=== PATIENT | female | born 1950 | race Caucasian/White ===

== ENCOUNTER 2017-02-06 14:34 | Outpatient (CLI) | payer MEDICARE ==
[2017-02-06] VITALS (9 sets, daily range): BP systolic 101–141; BP diastolic 44–75; BMI 39.4
[~2017-02-06] VITALS: Ht 162.6 cm; Wt 104.0 kg
--- NOTE | ~2017-02-06 | HEMODYNAMI ---
PATIENT:DANIA QUINTANILLA MEDICAL RECORD: [id number] : 46 LOCATION:[place] [address] ADMISSION DATE: 02/06/17 Generatedon:02/06/201715:35 Patient name: DANIA QUINTANILLA Patient #: [id number] SSN: : 1950 Date of study: 02/06/2017 Page: Of Hemodynamic Procedure Report Patient Data Patient Demographics Procedure consent was obtained First Name: DANIA Gender: Female Last Name: SOCORRO : 1950 Middle Initial: Horace Age: 66 year(s) Patient #: [id number] Race: Unknown Additional ID: [id number] Contact details [address]: [address] [place] [address] State: [place] City: [place] Zip code: [address] Admission Admission Data Admission Date: 02/06/2017 Admission Time: 14:34 Room #: [facility] Procedure Procedure Types Cath Procedure Diagnostic Procedure LHC LHC w/Coronaries PCI Procedure AMI-BMS/GEOVANNY Initial Miscellaneous Procedures Moderate Sedation up to 30 minutes Procedure Description Procedure Date Procedure Date: 02/06/2017 Procedure Start Time: 14:52 Procedure End Time: 15:35 Procedure Staff Name Function Antony Breaux MD Performing Physician Debo Mckinnon RN Nurse Artur Temple RT Monitor Eyal Jerome RT Scrub Procedure Data Cath Procedure Fluoroscopy Diagnostic fluoroscopy Total fluoroscopy Time: 9.5 time: 9.5 min min Diagnostic fluoroscopy Total fluoroscopy dose: dose: 1542 mGy 1542 mGy Contrast Material Contrast Material Type Amount (ml) Isovue 300 163 Entry Location Entry Primary Successful Side Size Upsize Upsize Entry Closure Succes sful Closure Location (Fr) 1 (Fr) 2 (Fr) Remarks Device Remarks Femoral Right 6 Fr 6 Fr 6 Fr Exoseal artery Short Long Short Estimated blood loss: 10 ml Diagnostic catheters Device Type Used For End Catheter Placement Cordis 5Fr JL 4.0 Procedure Catheter (MP) Cordis 5Fr 3DRC Catheter Procedure (MP) Cordis 5Fr Pigtail Procedure Catheter (MP) Diagnostic Infinity 5Fr Coronary JR 4 catheter Angiography Procedure Complications No complications Procedure Medications Medication Administration Route Dosage Oxygen NC 2 l/min Heparin Flush Bag added to field 2 bags (1000units/500ml NS) Lidocaine 2% added to field 20 Versed I.V. 1 mg Fentanyl I.V. 50 mcg 0.9% NaCl I.V. 100 ml/hr Fentanyl I.V. 50 mcg Versed I.V. 1 mg Fentanyl I.V. 50 mcg Benadryl I.V. 50 mg Fentanyl I.V. 50 mcg Integrilin (Bolus I.V. 9 ml 2mg/ml) Hemodynamics Rest Heart Rate: 70 (bpm) Pressure Samples Time Site Value (mmHg) Purpose Heart Use Rate(bpm) 15:03 LV 192/27,32 Snapshot 87 15:14 AO 182/105(137) Snapshot 79 Gradients Valve Time Site Site Mean SEP/DFP Peak To Heart Use 1 2 (mmHg) (sec/min) Peak Rate (mmHg) (bpm) Aortic 15:04 LV AO 79 Snapshots Pre Cath Intra NCS Post Cath Vital Signs Time Heart Resp SPO2 etCO2 WR1rotx NIBP (mmHg) Rhythm Pain Sedatio n Rate (ipm) (%) (mmHg) (mmHg) Status Level (bpm) 14:38:04 67 16 98 0 0 177/83(139) NSR 0 (11) 10(A) , No pain 14:43:03 73 16 98 0 0 Measuring NSR 0 (11) 10(A) , No pain 14:43:09 75 16 98 0 0 188/67(162) NSR 0 (11) 10(A) , No pain 14:48:08 78 20 98 0 0 190/102(142) NSR 0 (11) 10(A) , No pain 14:52:59 79 16 98 0 0 180/100(132) NSR 0 (11) 10(A) , No pain 14:57:48 67 19 95 0 0 163/94(145) NSR 0 (11) 10(A) , No pain 15:02:33 80 20 95 0 0 173/100(115) NSR 0 (11) 9(A) , No pain 15:07:23 77 17 96 0 0 178/98(163) NSR 0 (11) 9(A) , No pain 15:12:16 78 19 97 0 0 183/102(152) NSR 0 (11) 9(A) , No pain 15:17:13 80 14 97 0 0 191/92(138) NSR 0 (11) 9(A) , No pain 15:22:02 83 14 97 0 0 184/95(141) NSR 0 (11) 9(A) , No pain 15:26:57 83 15 97 0 0 187/100(149) NSR 0 (11) 9(A) , No pain 15:31:15 83 17 96 0 0 183/108(137) NSR 0 (11) 9(A) , No pain Medications Time Medication Route Dose Verified Delivered Reason Notes Ef fectiveness by by 14:45:40 Oxygen NC 2 Antony Debo Per l/min [facility] Fernie weir MD 14:45:47 Heparin Flush added 2 Antony Antony for Bag to bags [facility] antiplatelet (1000units/500ml field MD MILLER therapy NS) 14:45:53 Lidocaine 2% added 20ml Antony Antony used for to vial [facility] procedure field MD MILLER 14:45:55 Benadryl I.V. 50 mg Antony Debo Per [facility] Fernie weir MD 14:48:32 0.9% NaCl I.V. 100 Antony Debo Per ml/hr [facility] Fern[facility] weir MD 14:48:56 Versed I.V. 1 mg Antony Debo for sedation [facility] Fernie Mckinnon RN, MD 14:48:56 Fentanyl I.V. 50 Antony Debo for sedation mcg [facility] Fernie Mckinnon RN, MD 14:51:35 Fentanyl I.V. 50 Antony Debo for sedation mcg [facility] Fernie Mckinnon RN, MD 14:51:45 Versed I.V. 1 mg Antony Debo for sedation [facility] Fernie Mckinnon RN, MD 14:54:51 Fentanyl I.V. 50 Antony Debo for sedation mcg [facility] Fernie Mckinnon RN, MD 14:58:47 Fentanyl I.V. 50 Antony Debo for sedation mcg [facility] Fernie Mckinnon RN, MD 15:10:36 Integrilin I.V. 9 ml Antony Debo for wasted (Bolus 2mg/ml) [facility] Fernie Mckinnon RN antiplatelet 1 ml MD therapy Procedure Log Time Note 14:30:42 Artur Temple RT(R) sent for patient. Start room use. 14:35:49 Time tracking: Regular hours 14:35:54 Plan of Care:Hemodynamics will remain stable., Cardiac rhythm will remain stable., Comfort level will be maintained., Respiratory function will remain adequate., Patient/ family verbilizes understanding of procedure., Procedure tolerated without complication., Recovers from procedure without complications.. 14:36:09 Patient received from CVICU to CCL 1 Alert and oriented. Tansferred to table in Supine position. 14:36:10 Warm blankets applied, and adilson hugger turned on for patient comfort. 14:36:11 Correct patient and procedure confirmed by team. 14:36:16 Signed procedure consent form obtained from patient. 14:36:17 ECG and BP/O2 sat monitors applied to patient. 14:36:18 Vital chart was started 14:44:10 Baseline sample Acquired. 14:44:16 Rhythm: sinus rhythm 14:44:17 Full Disclosure recording started 14:44:20 H&P Date Dictated: 02/06/2017 Emergent; H&P N/A. 14:44:21 Pre-procedure instructions explained to patient. 14:44:21 Pre-op teaching completed and patient verbalized understanding. 14:44:25 Family unavailable. 14:44:27 Patient NPO since Midnight. 14:44:29 Is the patient allergic to Iodine/contrast media? No. 14:44:32 Is patient on blood thinner?Yes 14:44:35 ACC The patient was administered the following blood thiners within the last 24 hours: ACCPlavix 14:44:38 Patient diabetic? No. 14:44:42 Patient not . Patient is over age 55. 14:44:43 Previous problem with sedation/anesthesia? No ? 14:44:44 Snore? Yes 14:44:45 Sleep apnea? No 14:44:47 Deviated septum? No 14:44:55 Opens mouth fully? Yes 14:44:56 Sticks out tongue? Yes 14:44:59 Airway obstruction? No ? 14:45:02 Dentures? No ? 14:45:08 Pre procedure: right dorsailis pedis pulse 1+ Palpable, but thready & weak; easily obliterated 14:45:11 Patient pain scale 0/10 ?. 14:45:18 IV patent on arrival in left forearm with 0.9% NaCl at O. 14:45:20 Lab results completed and on chart. 14:45:23 Right groin area was prepped with chlora-prep and draped in sterile fashion 14:45:24 Alarms reviewed by R. N. 14:45: Sharps counted by scrub and verified by R.N. 14:45: --------ALL STOP TIME OUT------ 14:45: Final Timeout: patient, procedure, and site verified with staff and physician. All members of the team are in agreement. 14:45:28 Right groin site verified by team. 14:45:32 Physical assessment completed. ASA score P 2 - A patient with mild systemic disease as per Antony Breaux MD. 14:45:40 Oxygen 2 l/min NC was administered by Debo Mckinnon RN; Per physician; 14:45:47 Heparin Flush Bag (1000units/500ml NS) 2 bags added to field was administered by Antony Breaux MD; for antiplatelet therapy; 14:45:52 Sedation plan: IV Moderate Sedation Versed, Fentanyl 14:45:53 Lidocaine 2% 20ml vial added to field was administered by Antony Breaux MD; used for procedure; 14:45:55 Benadryl 50 mg I.V. was administered by Debo Mckinnon RN; Per physician; 14:48:32 0.9% NaCl 100 ml/hr I.V. was administered by Debo Mckinnon RN; Per physician; 14:48:56 Versed 1 mg I.V. was administered by Debo Mckinnon RN; for sedation; 14:48:56 Fentanyl 50 mcg I.V. was administered by Debo Mckinnon RN; for sedation; 14:49:51 Zero performed for pressure channel P1 14:51:35 Fentanyl 50 mcg I.V. was administered by Debo Mckinnon RN; for sedation; 14:51:45 Versed 1 mg I.V. was administered by Debo Mckinnon RN; for sedation; 14:51:57 Use device set Femoral PCI 14:51:59 Tegaderm 4 x 4 opened to sterile field. 14:52:00 Acist Manifold opened to sterile field. 14:52:02 Acist Syringe opened to sterile field. 14:52:03 Acist Hand Control opened to sterile field. 14:52:03 Bag Decanter opened to sterile field. 14:52:04 Medline Cath Pack opened to sterile field. 14:52:04 Terumo 6Fr Franklin Sheath opened to sterile field. 14:52:04 St Ignacio 260cm J .035 wire opened to sterile field. 14:52:05 Merit BasixCompak Inflation Kit opened to sterile field. 14:52:09 Use device set Multipack Set 14:52:11 Diagnostic Infinity 5Fr Multipack catheter opened to sterile field. 14:52:19 Dickson [place] 300cm 0.014 guide wire opened to sterile field. 14:52:26 Procedure started. 14:52:30 Local anesthetic to right femoral artery with Lidocaine 2% by Antony Breaux MD.INITIAL ACCESS ONLY 14:54:51 Fentanyl 50 mcg I.V. was administered by Debo Mckinnon RN; for sedation; 14:56:13 A 6 Fr Short sheath was inserted into the Right Femoral artery 14:57:00 A Cordis 5Fr JL 4.0 Catheter (MP) was advanced over the wire and used for Procedure. 14:57:29 LCA angiography performed. 14:58:47 Fentanyl 50 mcg I.V. was administered by Debo Mckinnon RN; for sedation; 14:59:45 Catheter removed. 15:00:17 A Cordis 5Fr 3DRC Catheter (MP) was advanced over the wire and used for Procedure. 15:01:07 Catheter removed. 15:02:37 Terumo 6Fr Franklin Destination Sheath opened to sterile field. 15:02:49 A Cordis 5Fr Pigtail Catheter (MP) was advanced over the wire and used for Procedure. 15:03:53 LV angiography performed. 15:03:55 LV gram done using SHAFER 15:04:02 EF : 55 % 15:04:07 LV hemodynamics recorded. 15:04:12 Injector settings: Ml/sec: 10, Volume: 20, 15:04:56 Catheter removed. 15:05:26 Sheath upsized to a 6 Fr Long. 15:07:19 A Diagnostic Infinity 5Fr JR 4 catheter was advanced over the wire and used for Coronary Angiography. 15:07:53 RCA angiography performed. 15:07:56 Catheter removed. 15:08:17 Medtronic Launcher 6Fr HS I guide catheter opened to sterile field. 15:08:38 ACC PCI Site: mRCA has 99% stenosis. 15:08:41 ACC Pre-intervention NICHOLE Flow is 3. 15:08:49 6 Fr HS 1 SH guide catheter was inserted over the wire 15:10:36 Integrilin (Bolus 2mg/ml) 9 ml I.V. was administered by Debo Mckinnon RN; for antiplatelet therapy; wasted 1 ml 15:10:57 [place] wire advanced. 15:14:01 Wire removed. damaged. 15:14:08 Dickson Whisper J 300cm 0.014 guide wire opened to sterile field. 15:14:15 Whisper wire advanced. 15:17:00 Wire advanced across lesion. 15:17:23 Inflation number: 1 A Salter Path ThromboGenics [place] 3.0 X 15 balloon was prepped and advanced across the Mid RCA, then inflated to 8 QUENTIN for 0:30 (min:sec). 15:18:01 Balloon removed over the wire. 15:23:11 Inflation Number: 2 A AEOLUS PHARMACEUTICALStronic Integrity 3.5 X 15 stent was prepped and advanced across the Mid RCA. The stent was deployed at 14 QUENTIN for 0:45 (min:sec). 15:23:38 ACC Post-intervention NICHOLE Flow is 3. 15:23:44 Stent catheter was removed intact over wire. 15:23:45 Wire removed. 15:23:46 Guide catheter removed. 15:24:56 Cordis 6Fr Exoseal opened to sterile field. 15:25:12 Sheath upsized to a 6 Fr Short. 15:25:12 Sheath removed intact; hemostasis achieved with Exoseal to the Right Femoral artery. 15:26:09 Procedure ended.(Physican Out) 15:26:40 Fluoroscopy time 09.50 minutes. 15::44 Fluoroscopy dose: 1542 mGy 15::44 Flurop Dose total: 1542 15:27:09 Contrast amount:Isovue 300 163ml. 15:27:11 Sharps counted by scrub and verified by R.N. 15:27:35 Insertion/operative site no bleeding no hematoma. 15:27:38 Post-op/insertion site Right Femoral artery dressed using a 4 x 4 and Tegaderm. 15:28:12 Post Procedure Pulses reassessed and unchanged 15:28:16 Post-procedure physical assessment completed. ASA score P 2 - A patient with mild systemic disease as per Antony Breaux MD. 15:28:18 Post procedure rhythm: unchanged. 15:28:21 Estimated blood loss: 10 ml 15::23 Post procedure instruction explained to patient.Patient verbalizes understanding. 15:28:23 Patient needs reinforcement of post procedure teaching. 15:28:58 Procedure type changed to Cath procedure, Diagnostic procedure, LHC, LHC w/Coronaries, PCI procedure, AMI-BMS/GEOVANNY Initial, Miscellaneous Procedures, Moderate Sedation up to 30 minutes 15:29:00 Procedure and supply charges have been captured, reviewed, submitted and are correct. 15:29:03 Procedure Complication : No complications 15:35:05 Vital chart was stopped 15:35:05 See physician's report for complete and final results. 15:35:13 Report given to CVICU. 15:35:17 Patient transfered to CVICU with Bed. 15:35:19 Procedure ended. 15:35:19 Full Disclosure recording stopped 15:35:30 ACC-PCI Only Patient was given prescriptions, or instructed by Antony Breaux MD to start/continue the following medications upon discharge: Aspirin, Plavix 15:35:32 End room use (Document Last) Intervention Summary Intervention Notes Time ActionType Lesion and Equipment Action# Pressure Duration Attributes Used 15:17:23 Inflate Mid RCA Salter Path 1 8 00:30 balloon Sci [place] 3.0 X 15 balloon 15:23:11 Place stent Mid RCA Medtronic 2 14 00:45 Integrity 3.5 X 15 stent Device Usage Item Name Manufacture Quantity Catalog Number Hospital Part Current Mini mal Lot# / Charge Number Stock Stock Serial# Code Tegaderm 4 3M 1 [id number] 282735 717724 5 x 4 Acist Acist 1 16441 885991 784346 795001 5 Manifold Medical Systems Inc Acist Acist 1 51911 996891 712752 703114 20 Syringe Medical Systems Inc Acist Hand Acist 1 89655 232461 700539 418025 5 Control O&P Pro Systems Inc Bag Microtek 1 2002S 703501 99163 098051 5 YuanV Inc. Medline Cardinal 1 [id number] 427558 97417 613175 5 Cath Pack Health Terumo 6Fr Terumo 1 [id number] 657283 148317 401415 [address] St Ignacio 1 276965 987897 501552 441433 30 260cm J .035 wire [facility] 1 IT7044 604363 954885 374005 15 BasixCompak Medical Inflation Kit Diagnostic Cardinal 1 [id number] 047284 16273 093874 30 Infinity Health 5Fr Multipack catheter Dickson Dickson 1 [id number] 691262 017598 378071 1 [place] Vascular 300cm 0.014 guide wire Cordis 5Fr Cardinal 1 [id number] 5 JL 4.0 Health Catheter (MP) Cordis 5Fr Cardinal 1 821271 5 3DRC Health Catheter (MP) Terumo 6Fr Terumo 1 RSR01 334977 35548 897371 5 Franklin Destination Sheath Cordis 5Fr Cardinal 1 994681 5 Pigtail Health Catheter (MP) Diagnostic Cardinal 1 [id number] 067873 194272 135423 5 Infinity Health 5Fr JR 4 catheter Medtronic Medtronic 1 [id number] 245374 26041 990776 1 Launcher 6Fr HS I guide catheter Dickson Dickson 1 [id number] 073444 794811 700085 5 Whisper J Vascular 300cm 0.014 guide wire Salter Path Sci Salter Path 1 [id number] 854761 147100 074716 1 Black Box [employer] 3.0 X 15 balloon Medtronic Medtronic 1 [id number] 601447 398343 574975 9 [id number] Integrity 3.5 X 15 stent Cordis 6Fr Cardinal 1 [id number] 117897 547885 423419 10 Stream [employer] Signature Audit [place] Stage Time Signature Unsigned Intra-Procedure 02/06/2017 Artur Temple 3:35:46 PM RT(R) Signatures Monitor : Artur Temple RT Signature : Date : Time : [facility] [address] [place] [address]
--- NOTE | 2017-02-06 14:30 | NUR ---
PATIENT ARRIVED TO UNIT ACCOMPANIED BY EMS. PRODUCER DIRECTOR AT BEDSIDE. NOTIFIED ADMISSIONS
--- NOTE | 2017-02-06 15:45 | NUR ---
PATIENT BACK FROM REVENUE RESEARCH ANALYST. RIGHT GROIN SITE HAS MOIST BLOOD DRAINAGE AND IS SWOLLEN AND HARD. PAGED REVENUE RESEARCH ANALYST
[2017-02-06] MEDS ORDERED: ZESTORETIC 10/11 TAB PO (15:59)
[2017-02-06] MEDS ORDERED: ASPIRIN81 MG PO (16:00)
[2017-02-06] MEDS ORDERED: ADVIL200 MG PO (16:01)
--- NOTE | 2017-02-06 16:30 | NUR ---
PLACED FEM STOP ON. SPOKE WITH DR. BIRMINGHAM. NO NEW ORDERS. SITE MARKED, NOT ADVANCING. DOPPLERED RT PEDAL PULSE
[2017-02-06 17:00] LABS: BASOPHILS 0.2 % (0.0-2.0); EOSINOPHILS 0.1 % (0-7); HEMATOCRIT 37.7 % (36.0-48.0); HEMOGLOBIN 12.7 g/dL (12-16); IMMATURE GRANULOCYTES 0.2 % (0-5); LYMPHOCYTES 14.1 % (15-50); MCH 30.7 pg (26.0-34.0); MCHC 33.7 g/dL (31.0-37.0); MCV 91.1 fL (80.0-100.0); MEAN PLATELET VOLUME 10.6 fL (7.4-10.4); MONOCYTES 4.4 % (2-11); PLATELET COUNT 281 10x3/uL (130-400); RBC 4.14 10x6/uL (4.00-5.40); RDW 13.8 % (11.5-14.5); WBC 9.5 10x3/uL (4.8-10.8)
[2017-02-06 17:05] LABS: ANION GAP 16.1 mmol/L (8-16); CARBON DIOXIDE 22.4 mmol/L (21.0-32.0); POTASSIUM - SERUM 3.5 mmol/L (3.5-5.1)
--- NOTE | 2017-02-06 18:00 | NUR ---
PEDAL PULSES FOUND BY DOPPLER. LOOSENED FEM STOP.
--- NOTE | 2017-02-06 19:40 | NUR ---
REPORT REC'D AND CARE ASSUMED, REC'D PT LYING FLAT ON ROOM AIR, O2 SAT 94%, AWAKE, ALERT, AND ORIENTED, LEFT WRIST SALINE LOCK, NO SWELLING OR REDNESS NOTED, RIGHT GROIN DRSG WITH SMALL AMOUNT OF OLD BLOOD, FEM STOP IN PLACE AND IN THE PROCESS OF RELEASING PER AM SHIFT, AREA IN UPPER THIGH MARKED BUT REMAINS SOFT AT THIS TIME WITH NO FURTHER SWELLING NOTED, WILL CONTINUE TO RELEASE FEM STOP, PPP AND LOWER EXT'S WARM TO TOUCH, PT DENIES NEEDS AT THIS TIME, SR UP X 2, CALL LIGHT IN REACH.
--- NOTE | 2017-02-06 20:20 | NUR ---
FEM STOP RELEASED AND REMOVED FROM PT, SITE CDI EXCEPT FOR PREVIOUS BLEEDING, NO HEMATOMA NOTED, PT ASSISTED TO SIT UP ON SIDE OF BED AT THIS TIME, PT ASSISTED TO BATHROOM, CM-SR @ 75, BP STABLE, PT VOIDED APPROX 200CC CLEAR YELLWO URINE, BACK TO BED WITHOUT DIFFICULTY, PT REQUESTING SOMETHING TO EAT, TOLERATING CLEAR LIQUIDS AT THIS TIME.
--- NOTE | 2017-02-06 20:40 | NUR ---
PT SITTING UP IN BED, SANDWICH TRAY PROVIDED, PT DENIES PAIN OR OTHER NEEDS.
--- NOTE | 2017-02-06 20:55 | NUR ---
EVENING MED OF METOPROLOL GIVEN, CM-88, BP 134/59, PT RESTING IN BED WATCHING TV, ATE APPROX 75% OF SANDWICH TRAY.
--- NOTE | 2017-02-06 23:30 | NUR ---
REASSESSMENT COMPLETE, PT ASSISTED UP TO BATHROOM, TOLERATED WELL, RIGHT GROIN DRSG REMAINS CDI, NO BLEEDING OR HEMATOMA NOTED, PT DENIES FURTHER NEEDS, CALL LIGHT IN REACH.
[2017-02-07] VITALS (11 sets, daily range): BP systolic 85–134; BP diastolic 33–88; Ht 162.6 cm; Wt 104.0 kg
--- NOTE | 2017-02-07 | NUR ---
PT STATES " I NEED TO GET UP AGAIN, I FEEL LIKE I MIGHT THROW UP OR HAVE DIARRHEA, PT ASSISTED UP TO BATHROOM, CM-SR 62, BP 95/49, CALL LIGHT IN REACH.
--- NOTE | 2017-02-07 00:15 | NUR ---
PT REMAINS IN BATHROOM, STATES " I FELT WEAK AND SWEATY AND VOMITTED", EMESIS NOTED IN TRASH CAN, PT HAD SM FORMED BROWN STOOL, PT ASSISTED BACK TO BED AND REPOSITIONED FOR COMFORT, RIGHT GROIN REMAINS UNCHANGED.
--- NOTE | 2017-02-07 00:44 | NUR ---
PT STATES " I FEEL LIGHT HEADED AGAIN", CM-SB @ 55, BP 94/39, 4MG ZOFRAN GIVEN SLOW IVP TO LEFT WRIST AND FLUSHED, PT DENIES CP, WILL CONT TO MONITOR CLOSELY FOR CHANGES.
--- NOTE | 2017-02-07 01:30 | NUR ---
PT SLEEPING SOUNDLY AT THIS TIME, CM-SB @ 52, SBP LOW 100'S, NO DISTRESS NOTED, WILL CONT TO MONITOR FOR CHANGES.
--- NOTE | 2017-02-07 03:12 | NUR ---
REASSESSMENT COMPLETED, RIGHT GROIN DRSG CDI NO FURTHER BLEEDING OR HEMATOMA, CM-SR @ 62, BP 118/50, PT RESTING ON RIGHT SIDE EYES CLOSED, RESP EVEN AND UNALBORED, SR UP X 2, BED IN LOWEST POSITION.
--- NOTE | 2017-02-07 05:00 | NUR ---
PT RESTING ON SIDE EYES CLOSED, RESP EVEN AND UNLABORED, VSS, WILL CONT TO MONITOR FOR CHANGES.
--- NOTE | 2017-02-07 06:15 | NUR ---
NO VISITORS IN AT THIS TIME, PT RESTING EYES CLOSED, RESP EVEN AND UNLABORED, CM-SB @ 57, BP 103/48, NO DISTRESS NOTED, WILL REPORT TO ONCOMING SHIFT.
--- NOTE | 2017-02-07 09:18 | NUR ---
SET UP FOR BED BATH. AWAITING DR. BIRMINGHAM TO ROUND FOR FURTHER PLAN.
[2017-02-07] MEDS ORDERED: PLAVIX75 MG PO (13:03)
[2017-02-07] MEDS ORDERED: PRAVACHOL40 MG PO (13:03)
[2017-02-07] MEDS ORDERED: TOPROL XL25 MG PO (13:04)
--- NOTE | 2017-02-07 13:22 | NUR ---
PT DC'D PIVS. STATES "WHEN HE TOLD ME I COULD GO I WAS READY". DC INSTRUCTIONS REVIEWED WITH PT AND SON. NO CURRENT QUESTIONS. RX GIVEN. HOME MEDICATIONS RETURNED FROM PHARMACY. PT DC'D HOME VIA WHEELCHAIR WITH SON.
--- NOTE | 2017-02-12 08:42 | OP ---
PATIENT NAME: DANIA QUINTANILLA MEDICAL RECORD: [id number] :46 LOCATION:[place] ADMISSION DATE: SURGEON: MAN HOLLEY MD DATE OF OPERATION: 02/06/2017 PROCEDURE: Left heart catheterization, selective coronary angiography, right femoral artery approach. CATHETERS: A 5-Macanese sheath, 5/4 left and right Rogers, 5/4 pig. The procedure was well tolerated. The patient proceeded to the ICU after procedure was finished. FINDINGS: Left ventriculography in 30-degree SHAFER view, minimal anterior apical hypokinesis. Overall, function well preserved 50% or better. CORONARY ANATOMY: Left main: Left main is free of disease. LAD: Has a distal stenosis, ____ about 90% probably noninterventional. CIRCUMFLEX: Circumflex has a small ____ OM about 80%, again ____ small first. RIGHT CORONARY ARTERY: Dominant artery, gives rise to PDA and this has a tight stenosis of 90% in its midportion with a large thrombus burden. IMPRESSION: Obviously, right infarct-related artery. PLAN: Intervention of this vessel momentarily. DESCRIPTION OF PROCEDURE: A 5-Macanese sheath was changed for a long 6-Macanese sheath. A hockey stick guide catheter provided excellent guide catheter support followed by a 300 cm Amigo XT wire placed across the totally occluded right down a portion of vessel, was followed by a pre-deployment balloon, 3.0 x 15 mm Integrity. Balloon was inflated up to 8 atmospheres pre-deployment. Finally, a 3.5 x 15 mm Integrity nondrug-eluting stent was inflated up to 14 atmospheres for 45 seconds. Final injection shows excellent resolution of 90% plus stenosis with large thrombus burden, no significant residual. NICHOLE flow 3 throughout the procedure. Sheath closed with ExoSeal device. Integrilin was used in the case. Plavix was previously loaded in the ER. TRANSINT:[id number] Voice Confirmation ID: [id number] DOCUMENT ID: [id number] MAN HOLLEY MD at 0842 CC: [id number] DICTATION DATE: 02/06/17 1536 ASSISTANT DIRECTOR OF ADMISSIONS: 02/06/172115 DEP CLI 02/07/17 [place] [address]
--- NOTE | 2017-02-12 08:42 | DS ---
PATIENT:DANIA QUINTANILLA :46 MEDICAL RECORD: [id number] DISCHARGE SUMMARY ADMISSION DATE: 02/06/17 DISCHARGE DATE: 02/07/17 DATE OF ADMISSION: 02/06/2017 DATE OF DISCHARGE: 02/07/2017 DISCHARGE DIAGNOSES: 1. Acute myocardial infarction. 2. Known history of coronary artery disease, status post previous intervention. 3. Hypertension. 4. Hyperlipidemia. 5. Complete heart block, resolved. BRIEF HISTORY AND HOSPITAL COURSE: Transferred from [place] with acute inferior myocardial infarction complicated by a third-degree block, underwent emergent revascularization with stenting to the right coronary artery, recovered nicely. LV function was normal and was discharged home on ____ metoprolol 12.5 q.day, pravastatin 40 q. day, Plavix 75 q. day for a month, aspirin, indefinitely, should be seen back in [place] clinic in 6-8 weeks. DIET: AHA diet. ACTIVITY: As tolerated. TRANSINT:[id number] Voice Confirmation ID: [id number] DOCUMENT ID: [id number] MAN HOLLEY MD at 0842 CC: [id number] DICTATION DATE: 02/07/17 1242 SCHOOL GUARD: 02/08/17 0220 DEP CLI 02/07/17 [place] [id number] [place] [address]
== END 2017-02-07 13:22 | disposition home or self-care (01) ==
LOC: OBSVTIME → D.CVICU 14:34 → UNDOADMOB 14:34 → D.OPS 14:34 → OBSVTIME 14:35 → EDSTATUS 14:52 → D.CVICU 02-07 13:22 → D.OPS 02-07 13:22 → D.CVICU 02-07 13:22
PROVIDERS: Internal Medicine Interventional Cardiology
DX: I21.19 ST elevation (STEMI) myocardial infarction involving other coronary artery of inferior wall (principal); I25.10 Atherosclerotic heart disease of native coronary artery without angina pectoris; Z95.5 Presence of coronary angioplasty implant and graft; I44.2 Atrioventricular block, complete; I10 Essential (primary) hypertension; E78.5 Hyperlipidemia, unspecified